=== PATIENT | female | born 1980 | race Caucasian/White ===

== ENCOUNTER 2023-03-13 15:12 | Emergency (ER) | payer BC, OTHER ==
[2023-03-13 15:19] VITALS: BP 165/71; PULSE 77; RESP 16; TEMP 98.1; BMI 36.0
[2023-03-13 16:52] LABS: BASO % 0.9 % (0-2.0); EOS % 0.6 % (0-4.5); HEMATOCRIT 44.9 % (32.4-45.2); HEMOGLOBIN 15.4 GM/dL (10.7-15.3); LYMPH % 23.9 % (8-40); MCH 32.1 pg (25.7-33.7); MCHC 34.3 g/dl (32.0-36.0); MEAN CELL VOLUME 93.5 fl (80-96); MEAN PLT VOLUME 8.4 fl (7.5-11.1); MONO % 5.1 % (3.8-10.2); NEUT % 69.5 % (42.8-82.8); PLATELET COUNT 349 10^3/uL (134-434); RDW 13.8 % (11.6-15.6); WHITE BLOOD COUNT 10.6 K/mm3 (4.0-10.0)
[2023-03-13 17:25] LABS: ALBUMIN 3.7 g/dl (3.4-5.0); CALCIUM 9.1 mg/dL (8.5-10.1)
[2023-03-13 17:28] LABS: CREATININE 0.8 mg/dL (0.55-1.3)
[2023-03-13 17:30] LABS: BILIRUBIN,TOTAL 0.6 mg/dL (0.2-1); TOT PROT 7.3 g/dl (6.4-8.2)
[2023-03-13] MEDS ORDERED: KETOROLAC TROMETHAMINE 30 MG/1 ML VIAL IM ONE (18:17)
[2023-03-13] MEDS ORDERED: LIDOCAINE 5% TOPICAL PATCH TP ONE (18:18)
[2023-03-13] MEDS ORDERED: LIDOCAINE 5% TOPICAL PATCH ONE (18:21)
[2023-03-13] MEDS ORDERED: KETOROLAC TROMETHAMINE 30 MG/1 ML VIAL ONE (18:21)
[2023-03-13] MEDS ORDERED: LIDOCAINE PATCH REMOVAL MC SCH (22:00)
== END 2023-03-13 18:46 | disposition home or self-care (01) ==
LOC: JER 15:12
PROC: 3E0233Z Introduction of Anti-inflammatory into Muscle, Percutaneous Approach (ICD-10-PCS; principal; 2023-03-13)
DX: K62.5 Hemorrhage of anus and rectum (principal); K64.9 Unspecified hemorrhoids
CPT/HCPCS: 36415; 72100-TC-FY; 80053; 82272; 85025; 86850; 86900; 86901; 99284-25